=== PATIENT | male | born 1995 | race Caucasian/White ===

== ENCOUNTER 2018-02-28 18:25 | Emergency (ER) | payer SELFPAY ==
[~2018-02-28] VITALS: Ht 182.9 cm; Wt 63.5 kg
[2018-02-28 18:22] VITALS: BP 145/85
[2018-02-28] MEDS ORDERED: LORazepam Inj 2mg/ml 1ml IM ONE (18:30)
[2018-02-28] MEDS ORDERED: DiphenhydrAMINE 50mg/ml Inj IM ONE (18:30)
[2018-02-28] MEDS ORDERED: Haloperidol 5mg/ml Inj IM ONE (18:30)
[2018-02-28] MEDS ORDERED: LORazepam Inj 2mg/ml 1ml ONE (18:31)
--- NOTE | 2018-02-28 19:31 | Emergency Room Report ---
History of Present Illness General Chief Complaint: Behavioral Complaint Source: EMS (Stephanie Leon) Present Illness HPI 22-year-old male presents emergency department brought by ambulance for bizarre behavior. EMS was called when bystander/neighbors noted patient to be standing in the middle of the street naked. They report that neighbors stated patient has "psychiatric problems " and isn't "taking his meds" per PD. the patient was picked up outside of his residents which is an apartment complex. History of present illness and ROS are limited due to poor patient cooperation. The patient is highly distracted and has flights of ideas. The patient reports using LSD. Unable to obtain thorough medical history. (Stephanie Leon) Allergies: Coded Allergies: UNABLE TO ASSESS (Unverified , 02/28/18) Patient History Past Medical History: see triage record Past Surgical History: unable to obtain Pertinent Family History: unable to obtain Social History: Reports: drug use - LSD Reviewed Nursing Documentation: PMH: Agreed; PSxH: Agreed (Stephanie Leon) Review of Systems All Other Systems: limited - Poor Pt. cooperation, refusal to answer (Stephanie Leon) Physical Exam Vital Signs Date Time Temp Pulse Resp B/P (MAP) Pulse Ox O2 Delivery O2 Flow Rate FiO2 02/28/18 18:18 90 20 145/85 100 02/28/18 18:22 97.6 Room Air 97.6 Sp02 EP Interpretation: reviewed, normal General Appearance: no apparent distress, alert, GCS 15, non-toxic, mild distress, other - thin, Head: normocephalic, atraumatic Eyes: bilateral eye normal inspection, bilateral eye PERRL ENT: hearing grossly normal, no angioedema, normal voice, uvula midline, other - no oral lesions Neck: full range of motion Respiratory: chest non-tender, lungs clear, normal breath sounds, no rhonchi, no respiratory distress, no wheezing, speaking full sentences, other - no rales Cardiovascular #1: regular rate, rhythm, no edema Gastrointestinal: normal bowel sounds, non tender, soft, other - Pt. thin Rectal: deferred Genitourinary: normal inspection Musculoskeletal: back normal, gait/station normal, normal range of motion, non- tender Neurologic: alert, responsive, motor strength/tone normal, sensory intact, speech normal, grossly normal Psychiatric: anxious, other - inappropriate responses. He is very giggly, will respond to some few questions. Patient has rapid speech with intermittent bizarre comments. Skin: normal color, no rash, warm/dry, well hydrated, other - no bruises, open wounds or obvious abscesses/infections. Lymphatic: no adenopathy (Stephanie Leon) Medical Decision Making PA Attestation Dr. Javier is my supervising Physician whom patient management has been discussed with. (Stephanie Leon) Diagnostic Impression: Primary Impression: Behavioral change ER Course 22-year-old male presents emergency department brought by ambulance for bizarre behavior. EMS was called when bystander/neighbors noted patient to be standing in the middle of the street naked. They report that neighbors stated patient has "psychiatric problems " and isn't "taking his meds" per PD. the patient was picked up outside of his residents which is an apartment complex. History of present illness and ROS are limited due to poor patient cooperation. The patient is highly distracted and has flights of ideas. The patient reports using LSD. Unable to obtain thorough medical history. Pt is hyperactive, and has a very anxious and restless affect. pt. is verbally excited / some aggressive comments, no physical aggression so far. Ddx considered but are not limited to OD, SI/HI, psychosis, UTI, intoxication, head injury just to name a few. Vital signs: are WNL, pt. is afebrile H&PE are most consistent with behavioral/mental health issue- At this time unknown whether symptoms are drug induced or if patient truly has underlying psychiatric condition. Will do basic laboratory work and reassess patient frequently. He is very giggly, will respond to some few questions. Patient has rapid speech with intermittent bizarre comments. Patient is noted to to be alert and has a patent airway. ORDERS: -CBC, CMP: Unremarkable -UA: negative for infection see results attached. -UDS: Positive for THC -Salicylates and Acetaminophen - no acute intoxication. ED INTERVENTIONS: - 2mg Ativan IM -50mg Benadryl IM -5mg Haldol IM - Pt. calmer now, beginning to answer some questions with re-direction. He is still giving bizarre answers however they are more appropriate to the types of questions. He still denies psychiatric hx and denies having medications prescribed to him. He still denies SI/HI, has no complaints at this time. Labs back, pt. medically cleared, Pending re-evaluation and possible psychiatric evaluation. DISPOSITION: Pt. signed out to oncoming ED physician Dr. Andrews. Labs Test 02/28/18 20:13 02/28/18 20:45 White Blood Count 7.4 K/UL (4.8-10.8) Red Blood Count 4.95 M/UL (4.70-6.10) Hemoglobin 15.4 G/DL (14.2-18.0) Hematocrit 44.6 % (42.0-52.0) Mean Corpuscular Volume 90 FL (80-99) Mean Corpuscular Hemoglobin 31.1 PG (27.0-31.0) Mean Corpuscular Hemoglobin Concent 34.6 G/DL (32.0-36.0) Red Cell Distribution Width 10.3 % (11.6-14.8) Platelet Count 192 K/UL (150-450) Mean Platelet Volume 5.4 FL (6.5-10.1) Neutrophils (%) (Auto) 74.9 % (45.0-75.0) Lymphocytes (%) (Auto) 16.9 % (20.0-45.0) Monocytes (%) (Auto) 6.6 % (1.0-10.0) Eosinophils (%) (Auto) 0.6 % (0.0-3.0) Basophils (%) (Auto) 1.0 % (0.0-2.0) Sodium Level 142 MMOL/L (136-145) Potassium Level 3.7 MMOL/L (3.5-5.1) Chloride Level 104 MMOL/L (98-107) Carbon Dioxide Level 30 MMOL/L (21-32) Anion Gap 8 mmol/L (5-15) Blood Urea Nitrogen 9 mg/dL (7-18) Creatinine 1.1 MG/DL (0.55-1.30) Estimat Glomerular Filtration Rate > 60 mL/min (>60) Glucose Level 100 MG/DL (74-106) Calcium Level 9.4 MG/DL (8.5-10.1) Total Bilirubin 0.3 MG/DL (0.2-1.0) Aspartate Amino Transf (AST/SGOT) 30 U/L (15-37) Alanine Aminotransferase (ALT/SGPT) 41 U/L (12-78) Alkaline Phosphatase 71 U/L (46-116) Total Protein 7.5 G/DL (6.4-8.2) Albumin 4.8 G/DL (3.4-5.0) Globulin 2.7 g/dL Albumin/Globulin Ratio 1.8 (1.0-2.7) Salicylates Level 3.3 ug/mL (2.8-20) Acetaminophen Level < 2 MCG/ML (10-30) Serum Alcohol < 3 mg/dL Urine Opiates Screen Negative (NEGATIVE) Urine Barbiturates Screen Negative (NEGATIVE) Phencyclidine (PCP) Screen Negative (NEGATIVE) Urine Amphetamines Screen Negative (NEGATIVE) Urine Benzodiazepines Screen Negative (NEGATIVE) Urine Cocaine Screen Negative (NEGATIVE) Urine Marijuana (THC) Screen Positive (NEGATIVE) (Stephanie Leon) ER Course Patient signout to me. He was brought in for bizarre behavior. He received Haldol and Ativan. He slept and is now awake and said he felt better. He tell me that he hasn't slept for 2-3 days because he was helping people move. He's been off of his Lexapro the last few days. He said he could not sleep because he is out of his Lexapro. He doesn't remember what happened today. He denies any drug use. He is not suicidal or homicidal. He said he felt much better now. We'll let him sleep here and discharge in the morning. I see no criteria for 5150. (GANGA ANDREWS M.D.) Last Vital Signs Date Time Temp Pulse Resp B/P (MAP) Pulse Ox O2 Delivery O2 Flow Rate FiO2 02/28/18 18:22 97.6 76 20 145/85 100 Room Air 97.6 (Stephanie Leon) Status: improved (GANGA ANDREWS M.D.) Disposition: HOME, SELF-CARE Condition: Stable Signed Out To: Dr. Andrews (Stephanie Leon) Scripts Escitalopram Oxalate* (LEXAPRO*) 20 Mg Tablet 20 MG ORAL DAILY, #30 TAB Prov: GANGA ANDREWS M.D. 03/01/18 Additional Instructions: Follow-up with your counselor within a week. Return if symptom worsen. Stephanie Leon Feb 28, 2018 19:31 GANGA ANDREWS M.D. Mar 01, 2018 01:36
[2018-02-28 21:10] LABS: ANION GAP 8 mmol/L (5-15); BLOOD UREA NITROGEN 9 mg/dL (7-18); CALCIUM 9.4 MG/DL (8.5-10.1); CARBON DIOXIDE 30 MMOL/L (21-32); CHLORIDE 104 MMOL/L (98-107); CREATININE 1.1 MG/DL (0.55-1.30); POTASSIUM 3.7 MMOL/L (3.5-5.1); SODIUM 142 MMOL/L (136-145)
[2018-02-28 21:12] LABS: EOSINOPHILS % (AUTO) 0.6 % (0.0-3.0); HEMATOCRIT 44.6 % (42.0-52.0); HEMOGLOBIN 15.4 G/DL (14.2-18.0); LYMPHOCYTES % (AUTO) 16.9 % (20.0-45.0); MEAN CORPUSCULAR VOLUME 90 FL (80-99); MONOCYTES % (AUTO) 6.6 % (1.0-10.0); NEUTROPHILS % (AUTO) 74.9 % (45.0-75.0); PLATELET COUNT 192 K/UL (150-450); RED BLOOD COUNT 4.95 M/UL (4.70-6.10); RED CELL DISTRIBUTION WIDTH 10.3 % (11.6-14.8); WHITE BLOOD COUNT 7.4 K/UL (4.8-10.8)
[2018-02-28 21:18] LABS: ALANINE AMINOTRANSFERASE 41 U/L (12-78); ALBUMIN 4.8 G/DL (3.4-5.0); ALBUMIN/GLOBULIN RATIO 1.8 (1.0-2.7); ALKALINE PHOSPHATASE 71 U/L (46-116); ASPARTATE AMINO TRANSFERASE 30 U/L (15-37); BILIRUBIN,TOTAL 0.3 MG/DL (0.2-1.0)
[2018-02-28 22:00] VITALS: BP 142/80
[2018-03-01] VITALS: BP 122/89
[2018-03-01] MEDS ORDERED: LEXAPRO20 MG ORAL (01:36)
[2018-03-01 04:47] VITALS: BP 142/80
[2018-03-01 06:12] VITALS: BP 142/80
== END 2018-03-01 06:13 | disposition home or self-care (01) ==
LOC: EDBD 18:25 → EMR 18:59
DX: F91.9 Conduct disorder, unspecified (principal)
CPT/HCPCS: 36415; 80053; 80307; 85025; 96372; 99283; G0480; J1200; J1630; 80329